=== PATIENT | female | born 1960 | race Caucasian/White ===

== ENCOUNTER 2020-08-10 05:41 | Outpatient (RCR) | payer MEDICARE, BC ==
[~2020-08-10] VITALS: Ht 165.1 cm; Wt 72.7 kg
[2020-08-10] MEDS ORDERED: LEVO88TA2 PO (14:39)
[2020-08-10] MEDS ORDERED: PREG75CA PO (14:39)
== END 2020-08-10 14:41 | disposition home or self-care (01) ==
LOC: PREOP 05:41
PROVIDERS: ATTEND Specialist
DX: Z01.818 Encounter for other preprocedural examination (principal)

== ENCOUNTER 2020-08-17 11:33 | Day surgery (SDC) | payer BC, MEDICARE ==
[~2020-08-17] VITALS: Ht 165.1 cm; Wt 72.7 kg
[~2020-08-17 11:33] MED LIST: LEVO88TA2 PO; PREG75CA PO
--- NOTE | 2020-08-17 11:37 | Ophthalmologist Pre-Op Note ---
Pre-Operative Progress Note H&P Reviewed The H&P was reviewed, patient examined and no changes noted. Date H&P Reviewed: Aug 17, 2020 Time H&P Reviewed: 11:37 Pre-Op Dx Secondary Cataract, Right Eye DREW ALAN MD Aug 17, 2020 11:37
[2020-08-17] MEDS ORDERED: TROPICAMIDE 1% OPH SOLN (MYDRIACYL) 15 ML BTL OU PRN (11:45)
[2020-08-17] MEDS ORDERED: PHENYLEPHRINE 10% OPHTH (NEO-SYN) 5 ML BTL OU PRN (11:45)
[2020-08-17] MEDS: TETRACAINE 0.5% OPHTH SOLN 4 ML BTL (SINGLE DOSE ONLY) OU PRN ×3 (11:46→11:52)
--- NOTE | 2020-08-17 11:51 | Ophthalmology Operative Report ---
YAG Capsulotomy PREOPERATIVE DIAGNOSIS: Secondary Cataract Left Eye POSTOPERATIVE DIAGNOSIS: Secondary Cataract Left Eye PROCEDURE: YAG Capsulotomy, left eye SURGEON: Tomasz Alan ANESTHESIA: Topical anesthesia COMPLICATIONS: None ESTIMATED BLOOD LOSS: Minimal DESCRIPTION OF PROCEDURE: After proper informed consent was obtained, the patient's, a 60 female left eye received one drop of Tropicamide and one drop of Tetracaine. The patient was then placed at the YAG laser and using a power of [ 3.3] millijoules and [ 17] bursts were used to fashion a central capsulotomy. The patient tolerated the procedure well without complications. TOMASZ ALAN MD Aug 17, 2020 11:51
[2020-08-17 11:55] VITALS: BP 110/73
== END 2020-08-17 11:59 | disposition home or self-care (01) ==
LOC: SDC 11:33
PROVIDERS: ATTEND Specialist
DX: H26.492 Other secondary cataract, left eye (principal); M19.90 Unspecified osteoarthritis, unspecified site; Z79.899 Other long term (current) drug therapy; Z90.710 Acquired absence of both cervix and uterus

== ENCOUNTER 2020-08-28 13:20 | Outpatient (RCR) | payer MEDICARE ==
[~2020-08-28] VITALS: Ht 165.1 cm; Wt 72.7 kg
== END 2020-08-28 14:44 | disposition home or self-care (01) ==
LOC: PREOP 13:20
PROVIDERS: ATTEND Specialist
DX: Z01.818 Encounter for other preprocedural examination (principal)

== ENCOUNTER 2020-08-31 09:10 | Day surgery (SDC) | payer MEDICARE ==
[~2020-08-31] VITALS: Ht 165.1 cm; Wt 72.7 kg
[2020-08-31 09:15] VITALS: BP 118/83
[2020-08-31] MEDS: TETRACAINE 0.5% OPHTH SOLN 4 ML BTL (SINGLE DOSE ONLY) OU PRN ×3 (09:30→09:36)
[2020-08-31] MEDS ORDERED: PHENYLEPHRINE 10% OPHTH (NEO-SYN) 5 ML BTL OU PRN (09:45)
[2020-08-31] MEDS ORDERED: TROPICAMIDE 1% OPH SOLN (MYDRIACYL) 15 ML BTL OU PRN (09:45)
--- NOTE | 2020-08-31 10:02 | Ophthalmologist Pre-Op Note ---
Pre-Operative Progress Note H&P Reviewed The H&P was reviewed, patient examined and no changes noted. Date H&P Reviewed: Aug 31, 2020 Time H&P Reviewed: 10:02 Pre-Op Dx Secondary Cataract, Right Eye DREW ALAN MD Aug 31, 2020 10:02
[2020-08-31 10:10] VITALS: BP 118/83
--- NOTE | 2020-08-31 10:28 | Ophthalmology Operative Report ---
YAG Capsulotomy PREOPERATIVE DIAGNOSIS: Secondary Cataract Right Eye POSTOPERATIVE DIAGNOSIS: Secondary Cataract Right Eye PROCEDURE: YAG Capsulotomy, right eye SURGEON: Tomasz Alan ANESTHESIA: Topical anesthesia COMPLICATIONS: None ESTIMATED BLOOD LOSS: Minimal DESCRIPTION OF PROCEDURE: After proper informed consent was obtained, the patient's, a 60 female, right eye received one drop of Tropicamide and one drop of Tetracaine. The patient was then placed at the YAG laser and using a power of [3.2 ] millijoules and [ 16] bursts were used to fashion a central capsulotomy. The patient tolerated the procedure well without complications. TOMASZ ALAN MD Aug 31, 2020 10:28
== END 2020-08-31 10:10 | disposition home or self-care (01) ==
LOC: SDC 09:10
PROVIDERS: ATTEND Specialist
DX: H26.491 Other secondary cataract, right eye (principal); M19.90 Unspecified osteoarthritis, unspecified site; Z79.899 Other long term (current) drug therapy; Z90.710 Acquired absence of both cervix and uterus; Z80.0 Family history of malignant neoplasm of digestive organs